=== PATIENT | male | born 1980 | race Caucasian/White ===

== ENCOUNTER → 2020-05-30 | Outpatient (CLI) | payer OTHER ==
--- NOTE | 2020-05-30 15:26 | RAD ---
Study: CR WRIST BILAT 3V Indication: Bilateral fractures. Comparison: 11/18/2019 Findings: Right wrist: Flexible intramedullary nail spans the ulna and extends past the proximal obtained [id number]. Healed distal ulnar diaphyseal fracture with residual deformity. Numerous radiodense fragments are again demonstrated within the forearm soft tissues, volar more so than dorsal. The volar more so than dorsal soft tissues are irregular but this would be better assessed clinically. No superimposed acute fracture. As before there is increased inclination of the radial articular surface and volar tilt which may be developmental or the sequela of more remote trauma. Left wrist: Redemonstrated fracture deformity of the distal ulna through the styloid. Several fragments remain ununited and with well delineated margins. Some additional fragments present previously are now fused. Punctate radiodense debris surrounding the deformity through the ulnar aspect of the distal wrist was present previously. No newly seen fracture or change in carpal alignment. Nonspecific prominence of the soft tissues at the distal forearm and wrist. Impression: Right wrist: 1. The partially imaged flexible intramedullary nail traversing the ulna is intact. The intervening distal ulna diaphyseal fracture is fully healed. 2. Redemonstration of retained radiodense foreign bodies. No newly seen fracture. Left wrist: 1. Redemonstrated fracture deformity of the distal ulna. A portion of the fracture is now fused. 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 2. Unchanged extent of retained punctate metallic debris along and distal to the fracture. Electronically signed by: LARA NIETO MD (05/30/2020 3:23 PM) [id number]
== END | disposition home or self-care (01) ==
LOC: RAD 13:05
PROVIDERS: ATTEND Physician Assistant
DX: S52.602 Unspecified fracture of lower end of left ulna (principal); S52.601 Unspecified fracture of lower end of right ulna; X58.XXXD Exposure to other specified factors, subsequent encounter
CPT/HCPCS: 73110

== ENCOUNTER → 2020-07-22 | Outpatient (CLI) | payer OTHER ==
--- NOTE | 2020-07-22 09:25 | RAD ---
EXAM: Bilateral wrists, 3 views. HISTORY: Pain. COMPARISON: 05/30/2020 FINDINGS: 3 views of both breasts are obtained. There is internal fixation of a healed distal right ulnar diaphyseal fracture. There are scattered radiodense foreign bodies throughout the right forearm. There is a comminuted chronic appearing nonunited fracture involving the distal left ulna with punctate surrounding radiodense foreign bodies. There is a chronic nonunited fracture fragment at the base of the left fifth metacarpal. IMPRESSION: 1. Internal fixation of a healed right distal ulnar fracture due to prior penetrating injury given the presence of multiple scattered radiodense foreign bodies within the right forearm. 2. 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 Electronically signed by: Anila Sow MD (07/22/2020 9:22 AM) [id number]
== END ==
LOC: DXRAD 08:37
PROVIDERS: ATTEND Physician Assistant
DX: S50.851A Superficial foreign body of right forearm, initial encounter (principal); S62.316A Displaced fracture of base of fifth metacarpal bone, right hand, initial encounter for closed fracture; S52.602 Unspecified fracture of lower end of left ulna; S52.601 Unspecified fracture of lower end of right ulna; X58.XXXA Exposure to other specified factors, initial encounter; Y93.89 Activity, other specified; Y92.89 Other specified places as the place of occurrence of the external cause; Y99.8 Other external cause status
CPT/HCPCS: 73110